=== PATIENT | male | born 1940 | race Caucasian/White ===

== ENCOUNTER → 2017-02-01 | Outpatient (CLI) | payer MEDICARE, BC ==
[~2017-02-01] MED LIST: CIPR500T4 PO; HYDR-762 PO
--- NOTE | 2017-02-02 19:16 | RADRPT ---
Vent Rate: 66 bpm RR Interval: 0 msec OH Interval: 162 msec QRS Duration: 104 msec QT Interval: 396 msec QTC Interval: 415 msec P-R-T [place]: 71 - 26 - 59 degrees Normal sinus rhythm Low voltage QRS Incomplete right bundle branch block Cannot rule out Anterior infarct , age undetermined Abnormal ECG Electronically Signed By: Juan Manuel Mendoza [id number]
== END | disposition home or self-care (01) ==
LOC: EKG 11:05
PROVIDERS: ATTEND Ophthalmology
DX: Z01.818 Encounter for other preprocedural examination (principal); I45.10 Unspecified right bundle-branch block
CPT/HCPCS: 93005

== ENCOUNTER 2017-02-26 20:47 | Emergency (ER) | payer MEDICARE, BC ==
[~2017-02-26] VITALS: Ht 177.8 cm; Wt 72.5 kg
[2017-02-26 20:52] VITALS: Ht 177.8 cm; Wt 72.5 kg
[2017-02-26] MEDS ORDERED: SOD CHLORIDE 0.9% 1,000 ML IV STA (21:56)
[2017-02-26] MEDS ORDERED: ONDANSETRON 4 MG INJ IV STA (21:56)
[2017-02-26] MEDS ORDERED: morphine 4 MG/ML VIAL IV STA (21:56)
[2017-02-26 22:28] LABS: BASOPHILS % 0.4 % (0.0-2.0); EOSINOPHILS # 0.1 10^3/ul (0.0-0.5); EOSINOPHILS % 1.4 % (0.0-7.0); HEMATOCRIT 44.8 % (42.0-52.0); HEMOGLOBIN 15.3 g/dl (14.0-18.0); LYMPHOCYTES # 1.4 10^3/ul (0.8-2.9); LYMPHOCYTES % 25.9 % (15.0-51.0); MEAN CORPUSCULAR HEMOGLOBIN 29.3 pg (29.0-33.0); MEAN CORPUSCULAR HGB CONC 34.2 g/dl (32.0-37.0); MEAN CORPUSCULAR VOLUME 85.7 fl (82.0-101.0); MEAN PLATELET VOLUME 10.8 fl (7.4-10.4); MONOCYTE # 0.5 10^3/ul (0.3-0.9); MONOCYTES % 8.6 % (0.0-11.0); NEUTROPHIL # 3.5 10^3/ul (1.6-7.5); NEUTROPHILS % 63.5 % (39.0-77.0); PLATELET COUNT 263 10^3/UL (140-415); RED BLOOD COUNT 5.23 10^6/ul (4.70-6.10); RED CELL DISTRIBUTION WIDTH 12.4 % (11.5-14.5); WHITE BLOOD COUNT 5.6 10^3/ul (4.8-10.8)
[2017-02-26 23:03] LABS: ALANINE AMINOTRANSFERASE 40 IU/L (13-69); ALBUMIN 4.3 g/dl (3.3-4.9); ALBUMIN/GLOBULIN RATIO 1.34; ALKALINE PHOSPHATASE 97 IU/L (42-121); ANION GAP 13 (8-16); ASPARTATE AMINO TRANSFERASE 21 IU/L (15-46); BILIRUBIN,INDIRECT 0.3 mg/dl (0-1.1); BILIRUBIN,TOTAL 0.3 mg/dl (0.2-1.3); BLOOD UREA NITROGEN 17 mg/dl (7-20); CALCIUM 9.4 mg/dl (8.4-10.2); CARBON DIOXIDE 29 mmol/L (21-31); CHLORIDE 103 mmol/L (97-110); POTASSIUM 4.4 mmol/L (3.5-5.1); SODIUM 141 mmol/L (135-144); TOTAL PROTEIN 7.5 g/dl (6.1-8.1)
--- NOTE | 2017-02-26 23:07 | RADRPT ---
PROCEDURE: CT Abdomen and Pelvis without contrast. CLINICAL INDICATION: Abdominal and pelvic pain. TECHNIQUE: CT scan of the abdomen and pelvis without contrast was performed. Coronal and sagittal reformatted images were obtained from the axial source images. Images were reviewed on a [employer]on PACS workstation. Total exam DLP is 480.48 mGy-cm. CTDIvol is 8.47 mGy. One or more of the fo llowin dose reduction techniques were used: Automated exposure control, adjustment of the mA and/or kV according to patient size, use of iterative reconstruction technique. COMPARISON: CT scan of the abdomen and pelvis dated 11/03/2014. FINDINGS: The lung bases are normal. There is no pleural effusion. The liver is normal in size and attenuation. There is no focal hepatic lesion. The gallbladder and bile ducts are normal. The spleen is normal in size. There is no focal splenic lesion. Both adrenals are normal with no enlargement or mass. The pancreas is unremarkable with no mass or evidence of pancreatitis. There is a low attenuation mass superiorly in the right kidney consistent with a probable cyst, unch anged measuring 1.6 cm. There is no other renal mass or calculus. There is mild to moderate bilatera l hydroureteronephrosis. The abdominal aorta is not dilated. There is calcification in the aorta consistent with atherosclero sis. There is no retroperitoneal lymphadenopathy or mass. There is no pelvic lymphadenopathy or mass. The urinary bladder is distended the prostate is enlarged. The periappendiceal region is unremarkable with no evidence of appendicitis. The bowel and mesentery are normal. There is a fat-containing left inguinal hernia, unchanged. There is no free fluid or free gas. The osseous structures are unremarkable with no fracture or lytic lesion. IMPRESSION: 1. Unchanged 1.6 cm mass superiorly in the right kidney. 2. Mild to moderate bilateral hydroureteronephrosis. The hydronephrosis is likely due to marked manuel dder distension. 3. Enlarged prostate. 4. Atherosclerosis. 5. Fat containing left inguinal hernia, unchanged. RPTAT: QQ .Pernell El MD, MD Date Time Electronically viewed and signed by .Pernell El MD, MD on 02/26/2017 23:07 .Erasmo
[2017-02-26 23:09] LABS: GLUCOSE 160 mg/dl (70-220)
[2017-02-26 23:15] LABS: TROPONIN-I < 0.012 ng/ml (0.00-0.12)
[2017-02-26] MEDS ORDERED: FENTAnyl 50 MCG/ML VIAL IV ONE (23:30)
[2017-02-27] MEDS ORDERED: HYDROmorphONE 1 MG/ML SYG IV STA
[2017-02-27] MEDS ORDERED: LIDOCAINE 2% 20 ML UROJET SYRINGE MM ONE
[2017-02-27 01:10] LABS: URINE BLOOD (Dip) POC 2+ (NEGATIVE)
--- NOTE | 2017-02-27 01:29 | ERD ---
ER Documentation Chief Complaint Date/Time DATE: 02/27/17 TIME: 01:20 Chief Complaint abd pain, diarrhea, uncontrolled urination- frequency of urination HPI 77-year-old male presents for some diarrhea after he ate beans followed by jania. Is more significant problem however is that he is having trouble urinating. He feels like he has to go but nothing comes out. He also has lower abdominal pain that has been increasing to level of severe by now. He does have a history of a large prostate. He has an appointment with the urologist on Tuesday. ROS All systems reviewed and are negative except as per history of present illness. Medications Home Meds Active Scripts Hydrocodone Bit-Acetaminophen* ([place]*) 10-325 Mg Tablet, 1 TAB PO Q4H Y for PAIN, #20 TAB Prov:YAO RUSH 11/03/14 Ciprofloxacin Hcl* (Ciprofloxacin Hcl*) 500 Mg Tablet, 500 MG PO BID for 10 Days , TAB Prov:YAO RUSH 11/03/14 Allergies Allergies: Coded Allergies: No Known Allergy (Unverified , 11/02/14) PMhx/Soc History of Surgery: Yes (CARDIAC STENT) Anesthesia Reaction: No Hx Neurological Disorder: No Hx Respiratory Disorders: No Hx Cardiac Disorders: Yes (CAD with angioplasty x 2 in 1998 and 1999) Hx Psychiatric Problems: No Hx Miscellaneous Medical Probl: No Hx Alcohol Use: Yes (OCCASIONALLY) Hx Substance Use: Yes (MARIJUANA OCASSIONALLY) Hx Tobacco Use: No Smoking Status: Never smoker Physical Exam Vitals Vital Signs Date Time Temp Pulse Resp B/P Pulse Ox O2 Delivery O2 Flow Rate FiO2 02/26/17 21:34 96.8 86 20 188/99 97 Room Air 02/26/17 20:52 96.8 85 20 188/99 97 Physical Exam Const: [] Her distress, very uncomfortable, holding lower abdomen. Head: Atraumatic Eyes: Normal Conjunctiva ENT: Normal External Ears, Nose and Mouth. Neck: Full range of motion..~ No meningismus. Resp: Clear to auscultation bilaterally Cardio: Regular rate and rhythm, no murmurs Abd: Soft except for suprapubic fullness with diffuse tenderness to palpation of this fullness, otherwise non distended. Normal bowel sounds Skin: No petechiae or rashes Back: No midline or flank tenderness Ext: No cyanosis, or edema Neur: Awake and alert oriented 3, no focal deficits. Psych: Normal Mood and Affect Result Diagram: 02/26/17211402/26/172114 Results 24 hrs Laboratory Tests Test 02/26/17 21:15 02/26/17 22:05 02/27/17 01:18 White Blood Count 5.610^3/ul Red Blood Count 5.2310^6/ul Hemoglobin 15.3g/dl Hematocrit 44.8% Mean Corpuscular Volume 85.7fl Mean Corpuscular Hemoglobin 29.3pg Mean Corpuscular Hemoglobin Concent 34.2g/dl Red Cell Distribution Width 12.4% Platelet Count 14579^3/UL Mean Platelet Volume 10.8fl Neutrophils % 63.5% Lymphocytes % 25.9% Monocytes % 8.6% Eosinophils % 1.4% Basophils % 0.4% Nucleated Red Blood Cells % 0.0/100WBC Neutrophils # 3.510^3/ul Lymphocytes # 1.410^3/ul Monocytes # 0.510^3/ul Eosinophils # 0.110^3/ul Basophils # 0.010^3/ul Nucleated Red Blood Cells # 0.010^3/ul Sodium Level 141mmol/L Potassium Level 4.4mmol/L Chloride Level 103mmol/L Carbon Dioxide Level 29mmol/L Anion Gap 13 Blood Urea Nitrogen 17mg/dl Creatinine 1.00mg/dl Glucose Level 160mg/dl Calcium Level 9.4mg/dl Total Bilirubin 0.3mg/dl Direct Bilirubin 0.00mg/dl Indirect Bilirubin 0.3mg/dl Aspartate Amino Transf (AST/SGOT) 21IU/L Alanine Aminotransferase (ALT/SGPT) 40IU/L Alkaline Phosphatase 97IU/L Troponin I < 0.012ng/ml Total Protein 7.5g/dl Albumin 4.3g/dl Globulin 3.20g/dl Albumin/Globulin Ratio 1.34 Lipase 173U/L Lactic Acid Level 1.7mmol/L Bedside Urine pH (LAB) 7.0 Bedside Urine Protein (LAB) Negative Bedside Urine Glucose (UA) Negative Bedside Urine Ketones (LAB) Negative Bedside Urine Blood 2+ Bedside Urine Nitrite (LAB) Negative Bedside Urine Leukocyte Esterase (L Negative Current Medications Medications (Trade) Dose Ordered Sig/Medardo Route PRN Reason Start Time Stop Time Status Last Admin Dose Admin Sodium Chloride (NS) 1,000 ml @ 1,000 mls/hr Q1H STAT IV 02/26/17 21:56 02/26/17 22:55 DC 02/26/17 22:11 Morphine Sulfate (morphine) 4 mg ONCE STAT IV 02/26/17 21:56 02/26/17 21:58 DC 02/26/17 22:11 Ondansetron HCl (Zofran Inj) 4 mg ONCE STAT IV 02/26/17 21:56 02/26/17 21:58 DC 02/26/17 22:09 Fentanyl (Sublimaze) 50 mcg ONCE ONCE IV 02/26/17 23:30 02/26/17 23:31 DC 02/26/17 23:42 Lidocaine (Lidocaine 2% Urojet) 20 ml ONCE ONCE MM 02/27/17 00:00 02/27/17 00:01 DC 02/26/17 23:42 Hydromorphone HCl (Dilaudid) 1 mg ONCE STAT IV 02/27/17 00:00 02/27/17 00:01 DC 02/27/17 00:38 Procedures/MDM Obstructive uropathy secondary to enlarged prostate. Hydronephrosis secondary to this. This problem was due to the emergency room with insertion of a Wilson catheter. Was a difficult insertion and took several attempts of different size catheters over were able to successfully place a Wilson catheter with a daily. Fussiness in place and put a leg bag on. Patient was given morphine followed by fentanyl 5 followed by Dilaudid to be able to tolerate these procedures and is increasing suprapubic pain. Patient states that he feels excellent and his pain is completely resolved after he was able to urinate 1 L of urine. Patient has an appointment now tomorrow with his urologist. No signs of infection in the urine. No signs of serious bacterial infection. Diarrhea may be diet related. Going to give a tab of the multiple in the emergency room. Patient is being discharged with follow-up already scheduled. Return precautions given to the emergency room CT abdomen pelvis interpretation: Markedly distended bladder with enlarged prostate, no bowel obstruction, no free air perforation, no abnormal fat stranding, no fractures. There is mild to moderate hydronephrosis. Departure Diagnosis: Primary Impression: Obstructive uropathy Additional Impressions: Enlarged prostate Diarrhea Hydronephrosis Condition: Stable IMANI DAY DO Feb 27, 2017 01:29
[2017-02-27 01:30] VITALS: BP 113/68; PULSE 93; RESP 20; TEMP 96.8
[2017-02-27] MEDS ORDERED: DIPHENOXYLATE/ATROPINE TAB PO ONE (01:30)
[2017-02-27 01:31] LABS: ADD UMIC YES; UR ASCORBIC ACID NEGATIVE (NEGATIVE); UR BILIRUBIN (Dip) NEGATIVE (NEGATIVE); UR BLOOD (Dip) 3+ mg/dL (NEGATIVE); UR CLARITY CLEAR (CLEAR); UR COLOR STRAW (YELLOW); UR GLUCOSE (Dip) NEGATIVE (NEGATIVE); UR KETONES (Dip) NEGATIVE (NEGATIVE); UR LEUKOCYTE ESTERASE (Dip) NEGATIVE Leu/ul (NEGATIVE); UR NITRITE (Dip) NEGATIVE (NEGATIVE); UR RBC 95 /HPF (0-5); UR TOTAL PROTEIN (Dip) NEGATIVE (NEGATIVE); UR UROBILINOGEN (Dip) NEGATIVE (NEGATIVE)
[2017-02-28] MEDS ORDERED: TAMS-14 PO (12:03)
[2017-02-28] MEDS ORDERED: CIPR500T4 PO (12:20)
== END 2017-02-27 02:30 | disposition home or self-care (01) ==
LOC: E/R 20:47
DX: N13.9 Obstructive and reflux uropathy, unspecified (principal); N40.1 Benign prostatic hyperplasia with lower urinary tract symptoms; N13.30 Unspecified hydronephrosis; R19.7 Diarrhea, unspecified; I25.10 Atherosclerotic heart disease of native coronary artery without angina pectoris; Z98.61 Coronary angioplasty status
CPT/HCPCS: 36415; 51701; 74176; 80053; 81001; 83605; 83690; 84484; 85025; 96374; 96375; 99285; J1170; J2270; J2405; J3010; J7030; 81003

== ENCOUNTER 2017-02-28 10:58 | Emergency (ER) | payer MEDICARE, BC ==
[~2017-02-28] VITALS: Ht 152.4 cm; Wt 78.0 kg
[2017-02-28 11:06] VITALS: Ht 152.4 cm; Wt 78.0 kg
[2017-02-28] MEDS ORDERED: TAMS-14 PO (12:03)
[2017-02-28] MEDS ORDERED: CIPR500T4 PO (12:20)
--- NOTE | 2017-02-28 14:42 | ERD ---
ER Documentation Chief Complaint Date/Time DATE: 02/28/17 TIME: 14:40 Chief Complaint wants f/c replaced, HPI Patient is a 77-year-old male who presents requesting a Wilson be removed. He had a Wilson catheter placed on Tuesday and then saw a urologist but he said the urologist "wanted to take the catheter out without giving him any pain medicine". Therefore he did not allow the urologist to see him any longer and came to the ER for removal. The patient is concerned he may have a urinary infection as well because he has some burning. Upon review of old medical records this is the patient's fourth visit to the ER since 2011. He is not taking any prostate shrinking medications. ROS All systems reviewed and are negative except as per history of present illness. Medications Home Meds Active Scripts Ciprofloxacin Hcl* (Ciprofloxacin Hcl*) 500 Mg Tablet, 500 MG PO BID for 7 Days , TAB Prov:DIANNA CANNON MD 02/28/17 Tamsulosin Hcl* (Flomax*) 0.4 Mg Cap.er.24h, 0.4 MG PO QPM, #30 CAP Prov:DIANNA CANNON MD 02/28/17 Hydrocodone Bit-Acetaminophen* ([place]*) 10-325 Mg Tablet, 1 TAB PO Q4H Y for PAIN, #20 TAB Prov:YAO RUSH 11/03/14 Ciprofloxacin Hcl* (Ciprofloxacin Hcl*) 500 Mg Tablet, 500 MG PO BID for 10 Days , TAB Prov:YAO RUSH 11/03/14 Allergies Allergies: Coded Allergies: No Known Allergy (Unverified , 11/02/14) PMhx/Soc History of Surgery: Yes (CARDIAC STENT) Anesthesia Reaction: No Hx Neurological Disorder: No Hx Respiratory Disorders: No Hx Cardiac Disorders: Yes (CAD with angioplasty x 2 in 1998 and 1999) Hx Psychiatric Problems: No Hx Miscellaneous Medical Probl: No Hx Alcohol Use: Yes (OCCASIONALLY) Hx Substance Use: Yes (MARIJUANA OCASSIONALLY) Hx Tobacco Use: No Smoking Status: Never smoker FmHx Family History: No diabetes Physical Exam Vitals Vital Signs Date Time Temp Pulse Resp B/P Pulse Ox O2 Delivery O2 Flow Rate FiO2 02/28/17 11:06 98.1 75 18 122/71 99 Physical Exam Const: No acute distress Head: Atraumatic Eyes: Normal Conjunctiva ENT: Normal External Ears, Nose and Mouth. Neck: Full range of motion..~ No meningismus. Resp: Clear to auscultation bilaterally Cardio: Regular rate and rhythm, no murmurs Abd: Soft, non tender, non distended. Normal bowel sounds Skin: No petechiae or rashes Back: No midline or flank tenderness Ext: No cyanosis, or edema Neur: Awake and alert Psych: Normal Mood and Affect Procedures/MDM Patient is a 77-year-old male presents with urinary retention. I do not want to remove the Wilson catheter at this time as he is not on Flomax or other prostate shrinking medication. I will give him a prescription for Flomax and Cipro to prevent infection and I told him that he could follow-up with Dr. Velez from urology in the office or return to the ER for catheter removal in 48 hours. The patient understands the plan is okay for discharge at this time. The patient is otherwise well-appearing and in no distress and I doubt sepsis. Departure Diagnosis: Primary Impression: Urinary retention Condition: Fair Patient Instructions: Urinary Retention, Male Referrals: MARCK VELEZ Additional Instructions: Call your primary care doctor TOMORROW for an appointment during the next 1-2 days.See the doctor sooner or return here if your condition worsens before your appointment time. DIANNA CANNON MD Feb 28, 2017 14:42
== END 2017-02-28 12:24 | disposition home or self-care (01) ==
LOC: E/R 10:58
DX: R33.9 Retention of urine, unspecified (principal); I25.10 Atherosclerotic heart disease of native coronary artery without angina pectoris; Z98.61 Coronary angioplasty status
CPT/HCPCS: 99284

== ENCOUNTER 2017-02-28 16:40 | Emergency (ER) | payer BC, MEDICARE ==
[~2017-02-28] VITALS: Ht 165.1 cm; Wt 81.8 kg
[~2017-02-28 16:40] MED LIST changes: +TAMS-14 PO
[2017-02-28 16:47] VITALS: Ht 165.1 cm; Wt 81.8 kg
== END 2017-02-28 21:27 | disposition left against medical advice (07) ==
LOC: E/R 16:40
DX: Z53.21 Procedure and treatment not carried out due to patient leaving prior to being seen by health care provider (principal)